=== PATIENT | female | born 1935 | race Caucasian/White ===

== ENCOUNTER 2018-11-10 11:00 | Inpatient (IN) | payer OTHER, MEDICAID ==
[~2018-11-10] VITALS: Ht 152.4 cm; Wt 63.0 kg
[~2018-11-10 11:00] MED LIST: ASCO-339 PO; CYAN100T PO; DASA50TA PO; DICY20TA55 PO; FERR-57 PO; GLIP-204 PO; LEVO25TA7 PO; LYR50 PO; MIRT15TA7 PO; NAPR250T PO; OMEP20CA10 PO; SLOW-MAG64 M1 PO; TRAZ-218 PO; XALEYE OP
[2018-11-10 11:02] VITALS: BP_SYST 129
--- NOTE | 2018-11-10 11:02 | NUR ---
Patient to ER bed 5 to gown for evaluation. Side rails up. Report given to VIRGINIA Hall.
--- NOTE | 2018-11-10 11:07 | NUR ---
ER at bedside examining patient.
--- NOTE | 2018-11-10 11:07 | NUR ---
Patient bib BLS after being dc from [facility] s/p fall five days ago. According BLS she ahs not been able to move since being dc'd from [facility] arrives with multiple c/o.
[2018-11-10] MEDS ORDERED: NACL 0.9% 1,000 ML IV ONE (11:18)
[2018-11-10] MEDS ORDERED: OMEP20CA10 PO (11:24)
[2018-11-10] MEDS ORDERED: ACET-2165 PO (11:24)
[2018-11-10] MEDS ORDERED: TRAM100T34 PO (11:24)
[2018-11-10] MEDS ORDERED: [UNRECOGNIZED DRUG - OTHER] (11:24)
[2018-11-10] MEDS ORDERED: LEVO175T2 PO (11:24)
[2018-11-10 12:18] LABS: BASOPHILS % (AUTO) 0.2 % (0.0-2.0); EOSINOPHILS % (AUTO) 0.9 % (0.0-4.0); HEMATOCRIT 38.3 % (36-48); HEMOGLOBIN 12.7 g/dL (12.0-16.0); LYMPHOCYTES # (AUTO) 0.4 K/uL (1.0-5.5); LYMPHOCYTES % (AUTO) 8.4 % (20.5-51.5); MEAN CORPUSCULAR HEMOGLOBIN 27 pg (27-31); MEAN CORPUSCULAR HGB CONC 33 % (32-36); MEAN CORPUSCULAR VOLUME 81 fL (79.0-98.0); MONOCYTES # (AUTO) 0.3 K/uL (0.0-1.0); MONOCYTES % (AUTO) 6.1 % (1.7-9.3); NEUTROPHILS # (AUTO) 4.5 K/uL (1.8-7.7); NEUTROPHILS % (AUTO) 84.4 % (40.0-70.0); PLATELET COUNT (AUTO) 245 K/uL (130-430); RED BLOOD CELL COUNT(AUTO) 4.75 MIL/uL (4.2-6.2); WHITE BLOOD COUNT (AUTO) 5.3 K/uL (4.8-10.8)
--- NOTE | 2018-11-10 12:40 | NUR ---
Pt is off the unit going to CT accompanied by staff
[2018-11-10 12:42] LABS: PROTHROMBIN TIME 10.3 SECS (9.5-12.5)
[2018-11-10 12:43] LABS: ANION GAP 6 (5-15); CALCIUM 9.3 mg/dL (8.4-11.0); CHLORIDE 95 mmol/L (98-107); CREATININE 0.59 mg/dL (0.55-1.30); GLUCOSE 109 mg/dL (70-99); POTASSIUM 4.2 mmol/L (3.5-5.1); SODIUM SERUM 127 mmol/L (136-145); UREA NITROGEN, BLOOD 12 mg/dL (8-21)
[2018-11-10] MEDS ORDERED: LORazepam 2 MG/ML VIAL (FOR ER USE) IVP ONE (12:45)
[2018-11-10 12:51] LABS: ALBUMIN 2.4 g/dL (3.4-4.8); AMYLASE 20 U/L (0-100); ASPARTATE AMINOTRANSFERASE 9 U/L (10-37); CHOLESTEROL 174 mg/dL (<200); HDL CHOLESTEROL 42 mg/dL (>55); LDL CHOLESTEROL 108 mg/dL (<100); LIPASE 59 U/L (73-393); TOTAL BILIRUBIN 0.7 mg/dL (0.0-1.0); TRIGLYCERIDES 125 mg/dL (30-150)
[2018-11-10 12:55] LABS: ALCOHOL, BLOOD < 3 mg/dL (<10)
--- NOTE | 2018-11-10 12:59 | NUR ---
pt returned from Ct. CT is incomplete, pt was unable to stay still during the exam.
[2018-11-10] MEDS ORDERED: DIPHENHYDRAMINE INJ 50 MG/ML VIAL IVP ONE (13:00)
[2018-11-10 13:09] LABS: ALANINE AMINOTRANSFERASE 5 U/L (12-78)
--- NOTE | 2018-11-10 13:38 | NUR ---
Pt is off the unit going to CT again.
--- NOTE | 2018-11-10 15:07 | NUR ---
Orders received from Dr. Piedra, entered by RN. Called for room assignment.
--- NOTE | 2018-11-10 15:08 | NUR ---
Patient will be admitted to care of Dr. Piedra. Admitted to Telemetry unit. Will go to room 104B. Belongings list completed. Summary report printed. Report will be given at bedside.
--- NOTE | 2018-11-10 15:48 | NUR ---
ADMISSION NOTE Received patient from ER via elissa, received report from WU COLEMAN. Patient admitted with diagnosis of HYPONATREMIA. Patient oriented to hospital routine, call light, toileting and safety-patient verbalized understanding.
[2018-11-10 16:18] VITALS: BP_SYST 94
--- NOTE | 2018-11-10 16:25 | NUR ---
Neuro consult called: for Dr. Bucio, ordered by Dr. Piedra, regarding mechanical fall and hyponatremia, spoke with Xiomara.
[2018-11-10] MEDS: NACL 0.9% 1,000 ML IV SCH (16:30)
--- NOTE | 2018-11-10 17:00 | NUR ---
Patient is drowsy but arousable answer simple question,with continuos IV fluid for hydration, safety/fall precaution initiated, will monitor.
--- NOTE | 2018-11-10 18:27 | NUR ---
Patient is more awake ate her dinner tolerates 50% with out aspiration, safety/fall precaution initiated verbalized understanding.
--- NOTE | 2018-11-10 19:15 | NUR ---
CHANGE OF SHIFT; pt. confused, restless, removed her tele cables, her gown and found on the floor. pt. able to verbally response, she knows her name. in no acute distress. on fall risk, safety precautions in place. call light at bedside.
[2018-11-10 20:15] VITALS: BP_SYST 147
--- NOTE | 2018-11-10 20:15 | NUR ---
NOTES: pt. repositioned and placed everything in place, cardia pattern on sinus tach with frequent PAC's. noted swelling on bilateral legs and discoloration due fall katelin. rt. legs and skin scabs. left ankle/foot slightly deformed. IVF infusing via left hand, securely wrapped with kerlix roll to prevent from pulling out. pt. incontinent. jes care done.
[2018-11-10] MEDS ORDERED: traMADol HCL HCL 50 MG TABLET (ULTRAM) PO PRN (22:00)
--- NOTE | 2018-11-10 22:00 | NUR ---
NOTES: pt. removed gown and tele monitor again. pt. talking to herself. reoriented. repositioned. IVF patent. closely monitored.
--- NOTE | 2018-11-10 22:15 | NUR ---
NOTES: Dr. Piedra came and checked pt. pretty calm right now but informed MD that she gets restless on and off . pt. is disoriented but verbally responsive. safety precautions in place due to frequent falls.
--- NOTE | 2018-11-11 | NUR ---
NOTES: pt. remains calm and sleeping at this time.
--- NOTE | 2018-11-11 02:00 | NUR ---
NOTES: repositioned. cardiac pattern unchanged, remains sinus tach with frequent PAC's.
--- NOTE | 2018-11-11 02:52 | NUR ---
CONSULTATION PAGED/CALLED Reason for Consultation: AF Person Who was Notified: RAMON Consulting Physician: MICHAEL ALMANZA IS NIGHT PATROL INSPECTOR V Belt Builder Specialty: Ordering Physician: WAQAS
--- NOTE | 2018-11-11 04:30 | NUR ---
NOTES: continue to monitor. safet measures in place. kept warm with blanket. pt. room close to nurses station.
--- NOTE | 2018-11-11 06:15 | NUR ---
NOTES: pt. awakened, was upset but needs to change since gets incontinent of urine. complete jes care done, Z david applied on both groin and under her breast. IV patent. repositioned.
--- NOTE | 2018-11-11 06:43 | NUR ---
CLOSING NOTES; pt. sleeping, in no acute distress. kept warm and comfortable. IV site intact. for further care and assistance. fall risk precautions. call light at bedside. pt. room close to nurses station.
[2018-11-11] MEDS: PANTOPRAZOLE SODIUM 40 MG TAB PO SCH (06:56)
[2018-11-11 08:00] VITALS: BP_SYST 125
[2018-11-11] MEDS ORDERED: DASATINIB 50 MG PO SCH (09:00)
[2018-11-11] MEDS ORDERED: PREGABALIN 25 MG CAPSULE (LYRICA) PO SCH (09:00)
[2018-11-11 12:48] VITALS: BP_SYST 96
[2018-11-11] MEDS ORDERED: HALOPERIDOL LACTATE 5 MG/ML VIAL IM ONE (15:15)
--- NOTE | 2018-11-11 16:10 | NUR ---
DC PLANNING Went to pt's bedside x2, in am & afternoon to do dc planning eval, both times pt sleeping, would not wake up on calling pt's name. CM/Geodetic Surveyor Technologist to f/u when pt more awake.
--- NOTE | 2018-11-11 16:21 | NUR ---
CONSULTATION PAGED/CALLED Reason for Consultation: [] PSYCHOSIS Person Who was Notified: [] SOMMER Consulting Physician: [] DR Nadine SIMMONS Naval Science Teacher Specialty: [] PSYCH Ordering Physician: [] DR Arianne ALAN
[2018-11-11 16:47] VITALS: BP_SYST 144
[2018-11-11] MEDS: QUEtiapine FUMARATE 25 MG TABLET PO SCH (17:59)
[2018-11-11 19:50] VITALS: BP_SYST 115
--- NOTE | 2018-11-11 20:00 | NUR ---
INITIAL NOTE AT INITIAL ASSESSMENT, PATIENT IS RESTING IN BED, STABLE, NO SIGNS OF RESPIRATORY DISTRESS. PATIENT VERBALIZES NO PAIN AT THIS TIME. PLAN OF CARE FOR THE EVENING IS COMMUNICATED WITH THE PATIENT. BED IS LOCKED, ALARMED, AND AT THE LOWEST LEVEL. FALL AND SAFETY PRECAUTIONS WILL BE TAKEN THROUGHOUT THE SHIFT. PATIENT IS REFUSING IV PLACEMENT AT THIS TIME, WILL CONTINUE TO ENCOURAGE.
[2018-11-11] MEDS ORDERED: traZODone HCL 50 MG TABLET (DESYREL) PO SCH (21:00)
[2018-11-11] MEDS ORDERED: MIRTAZAPINE 15 MG TABLET PO SCH (21:00)
[2018-11-11] MEDS: NYSTATIN/TRIAMCIN 15 GM TOPICAL CREAM TP SCH (21:00)
--- NOTE | 2018-11-11 22:00 | NUR ---
NOTE PATIENT IS RESTING IN BED, STABLE, NO SIGNS OF RESPIRATORY DISTRESS. CALL LIGHT IS WITHIN REACH. BED IS LOCKED, ALARMED, AND AT THE LOWEST LEVEL.
[2018-11-11 23:55] VITALS: BP_SYST 117
--- NOTE | 2018-11-12 | NUR ---
NOTE PATIENT IS SLEEPING, STABLE, NO SIGNS OF RESPIRATORY DISTRESS. CALL LIGHT IS WITHIN REACH. BED IS LOCKED, ALARMED, AND AT THE LOWEST LEVEL.
--- NOTE | 2018-11-12 02:00 | NUR ---
NOTE PATIENT IS SLEEPING, STABLE, NO SIGNS OF RESPIRATORY DISTRESS. CALL LIGHT IS WITHIN REACH. BED IS LOCKED, ALARMED, AND AT THE LOWEST LEVEL.
--- NOTE | 2018-11-12 03:00 | NUR ---
NOTE PATIENT IS SLEEPING, STABLE, NO SIGNS OF RESPIRATORY DISTRESS. CALL LIGHT IS WITHIN REACH. BED IS LOCKED, ALARMED, AND AT THE LOWEST LEVEL.
[2018-11-12] MEDS: HALOPERIDOL LACTATE 5 MG/ML VIAL IM PRN (04:25)
[2018-11-12 06:44] LABS: BASOPHILS % (AUTO) 0.6 % (0.0-2.0); EOSINOPHILS # (AUTO) 0.1 K/uL (0.0-0.4); HEMATOCRIT 32.4 % (36-48); HEMOGLOBIN 10.7 g/dL (12.0-16.0); LYMPHOCYTES # (AUTO) 0.4 K/uL (1.0-5.5); LYMPHOCYTES % (AUTO) 11.4 % (20.5-51.5); MEAN CORPUSCULAR HEMOGLOBIN 27 pg (27-31); MEAN CORPUSCULAR HGB CONC 33 % (32-36); MEAN CORPUSCULAR VOLUME 81 fL (79.0-98.0); MONOCYTES # (AUTO) 0.3 K/uL (0.0-1.0); MONOCYTES % (AUTO) 8.2 % (1.7-9.3); NEUTROPHILS # (AUTO) 2.8 K/uL (1.8-7.7); NEUTROPHILS % (AUTO) 77.8 % (40.0-70.0); PLATELET COUNT (AUTO) 235 K/uL (130-430); RED BLOOD CELL COUNT(AUTO) 3.99 MIL/uL (4.2-6.2); WHITE BLOOD COUNT (AUTO) 3.6 K/uL (4.8-10.8)
[2018-11-12 07:10] LABS: ALANINE AMINOTRANSFERASE < 5 U/L (12-78); ALBUMIN 1.8 g/dL (3.4-4.8); ANION GAP 5 (5-15); ASPARTATE AMINOTRANSFERASE 14 U/L (10-37); CALCIUM 8.7 mg/dL (8.4-11.0); CHLORIDE 97 mmol/L (98-107); CREATININE 0.61 mg/dL (0.55-1.30); GLUCOSE 134 mg/dL (70-99); SODIUM SERUM 126 mmol/L (136-145); TOTAL BILIRUBIN 0.4 mg/dL (0.0-1.0); UREA NITROGEN, BLOOD 13 mg/dL (8-21)
[2018-11-12] MEDS: PANTOPRAZOLE SODIUM 40 MG TAB PO SCH (07:13)
[2018-11-12] MEDS: NACL 0.9% 1,000 ML IV SCH ×2 (07:14→07:15)
--- NOTE | 2018-11-12 07:17 | NUR ---
Nutrition Update Giovany Scale 16 noted. Pt admitted for Hyponatremia Diet: Mechanical Soft BMI: 27 kg/m2 RD to follow per nutrition care standards.
--- NOTE | 2018-11-12 07:35 | NUR ---
Opening Notes Patient received lying comfortably in her bed with respiration even and unlabored. Able to verbalize needs and concerns. Denies any pain or discomfort at this time. IV infusing well to left FA. Discussed to patient the plan of care, patient verbalized understanding. fall precaution observed. Call light within the reach. Will continue to monitor.
--- NOTE | 2018-11-12 08:57 | NUR ---
Physical Therapy order has been received and the chart reviewed. RN to clarify with MD any possible cervical spine precautions before attempting PT evaluation.
[2018-11-12] MEDS: NYSTATIN/TRIAMCIN 15 GM TOPICAL CREAM TP SCH ×2 (09:03→20:04)
--- NOTE | 2018-11-12 09:30 | NUR ---
RN ROUND patient remain to be alert, awake and verbally responsive, resting well. Good pericare rendered by WATCH ENGINE OPERATOR. Educated patient on usage of Nystatin cream to her abdominal and breast fold, verbalized understanding. Applied Nystatin cream to her redness to abdominal and breastfold, well tolerated. Attended to needs and anticipated. Call light within the reach. Fall precaution observed.
[2018-11-12] MEDS ORDERED: FUROSEMIDE 20 MG/2 ML VIAL IVP ONE (11:00)
[2018-11-12 11:25] VITALS: BP_SYST 112
--- NOTE | 2018-11-12 11:36 | NUR ---
Dr. Dorothea nielson Seen and examined by Md will follow-up for any new orders.
--- NOTE | 2018-11-12 12:25 | NUR ---
Lasix refused patient educated on usage of lasix and its potential side effects, medication scanned then patient refused for the medication to be given, explained risks and benefits but patient still refused. Notified Dr. Piedra, with no new order at this time
[2018-11-12 14:29] VITALS: BP_SYST 123
--- NOTE | 2018-11-12 14:40 | NUR ---
RN ROUND Remain to be alert, awake and verbally responsive. Able to verbalize needs and concerns. Denies any pain or discomfort at this time. IV infusing well. Call light within the reach. Fall precaution observed. Will continue to monitor.
[2018-11-12 15:41] VITALS: BP_SYST 123
--- NOTE | 2018-11-12 16:01 | NUR ---
CONSULTATION CALLED FOR [facility] CHAND FOR CONSULT OF C-SPINE FX ORDER BY CONSULT DR ALAN SPOKE WITH IVAN
[2018-11-12] MEDS: ACETAMINOPHEN 325 MG TABLET PO PRN (16:04)
--- NOTE | 2018-11-12 16:04 | NUR ---
Generalized Pain Patient complained of generalized 3/10 pain, Tylenol 650 mg given as ordered, well tolerated. Will re-assess in an hour. Remain to be alert, awake and verbally responsive. Call light within the reach. Will continue to monitor.
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
--- NOTE | 2018-11-12 17:21 | NUR ---
CONSULTATION CALLED FOR TROY TEJADA FOR CONSULT OF PARONOID ORDER BY DR ALAN SPOKE WITH EMILI FACESHEET SENT OVER
[2018-11-12] MEDS: QUEtiapine FUMARATE 25 MG TABLET PO SCH (17:47)
--- NOTE | 2018-11-12 18:22 | NUR ---
Patient noncompliant/Called the patient remains to be confused, patient refusing SCD's, refused grading machine feeder, patient called the Senior Pricing Analyst's department, showed up and spoke with patient and reminded her where she is and that he cannot drive her home, patient agreed that she will stay for now. IV line is patent and infusing well, continuing to monitor, bed in lowest position, three side rails up, bed alarm on, bed close to nursing station.
--- NOTE | 2018-11-12 18:52 | NUR ---
Closing Notes Patient currently lying comfortably in her bed. Remain to be calm at this time. Denies any pain or discomfort at this time. Call light within the reach. Will endorse to next shift.
--- NOTE | 2018-11-12 19:30 | NUR ---
PM ASSESSMENT REPORT RECEIVED FROM AM RN. PT RECEIVED IN BED WITH EYES OPEN, CONFUSED. PT REQUIRES FREQUENT REORIENTATION. VSS, NO S/S OF ACUTE DISTRESS NOTED. PT ON RA. PT REFUSING EXERCISE PLANNER, EDUCATION PROVIDED ON IMPORTANCE OF MONITORING PT STILL REFUSES. LFA 22G IN PL[address] INFUSING NS @ 50 CC/HR. PT REFUSES TO WEAR SCDS. BECOMES AGGRESSIVE WHEN ATTEMPTING TO EDUCATE ABOUT PURPOSE OF SCDs. HOB ELEVATED, BED IN LOWEST POSITION, CALL LIGHT IN REACH. WILL CONTINUE TO MONITOR PT.
[2018-11-12 20:00] VITALS: BP_SYST 114
--- NOTE | 2018-11-12 21:08 | NUR ---
DR. WATSON WALKER AT BEDSIDE TO EVALUATE PT. NO NEW ORDERS RECEIVED AT THIS TIME. WILL CONTINUE TO MONITOR PT.
--- NOTE | 2018-11-12 22:00 | NUR ---
RN ROUNDS PT REPOSITIONED IN BED. SARIKA CARE DONE AND LINENS CHANGED WITH ASSIST OF ACTIVITY AIDE. PT CONTINUES TO REFUSE TELE BOX. WILL CONTINUE TO MONITOR PT.
[2018-11-13 00:29] VITALS: BP_SYST 146
--- NOTE | 2018-11-13 01:02 | NUR ---
RN ROUNDS PT RESTING COMFORTABLY IN BED WITH EYES CLOSED. BREATHING IS EVEN AND UNLABORED ON RA. WILL CONTINUE TO MONITOR PT.
[2018-11-13] MEDS: NACL 0.9% 1,000 ML IV SCH ×2 (06:19→16:31)
[2018-11-13] MEDS: PANTOPRAZOLE SODIUM 40 MG TAB PO SCH (06:20)
--- NOTE | 2018-11-13 07:17 | NUR ---
ENDORSEMENT BEDSIDE REPORT GIVEN TO GIRMA AND ALBERTO RN USING SBAR APPROACH. PT IN STABLE CONDITION, NO S/S OF ACUTE DISTRESS NOTED. NO OTHER NEEDS NOTED PER PT.
--- NOTE | 2018-11-13 07:30 | NUR ---
Opening Notes Patient received lying comfortably in her bed with respiration even and unlabored. Alert, awake and verbally responsive. Denies any pain or discomfort at this time. IVF infusing well, IV line to left FA intact and patent. Call light within the reach. Fall precaution observed. Will continue to monitor.
[2018-11-13] MEDS: FUROSEMIDE 20 MG TABLET PO SCH (08:04)
--- NOTE | 2018-11-13 09:26 | NUR ---
PATIENT IS AWAITING NEUROLOGY CONSULT AND RECOMMENDATION FOR CERVICAL SPINE BRACE.
--- NOTE | 2018-11-13 09:35 | NUR ---
RN ROUNDS Patient currently lying comfortably in her bed. resting well. Denies any pain or discomfort. fall precaution observed. Call light within the reach. Will continue to monitor.
[2018-11-13 10:14] VITALS: BP_SYST 121
--- NOTE | 2018-11-13 11:10 | NUR ---
RN ROUND Resting well. Respiration even and unlabored. Fall precaution observed. Call light within easy reach.
--- NOTE | 2018-11-13 11:35 | NUR ---
Dc Planning: calling patient's daughters for discharge planning assessment, 1. Sima # [phone] the line is disconnected. 2. LVM x2 to dtr Vinita # [phone].
[2018-11-13 12:00] VITALS: BP_SYST 120
--- NOTE | 2018-11-13 12:31 | NUR ---
PAGED DR. RODRIGUEZ (DR. ALMANZA COLLECTION ANALYST) PER NURSE DIALED [phone] SPOKE TO SANDI
--- NOTE | 2018-11-13 12:36 | NUR ---
Tachycardia/Paged Dr. Mcdonnell Informed by panel monitor that patient's HR went up [id number] to 160 to 180, patient is currently sitting comfortably in her bed eating lunch, V/S BP - 137/77, HR- 181 , R-20 and 02 sat at 97% on RA, no changes in LOC, denies any dizziness, asymptomatic. Dr Mcdonnell was paged, Dr. Yancey is on-call. Awaiting for call back. Will continue to monitor.
[2018-11-13] MEDS: ACETAMINOPHEN 325 MG TABLET PO PRN ×2 (13:14→21:26)
--- NOTE | 2018-11-13 13:57 | NUR ---
Dr. Mcdonnell call back received a call back from Dr. Mcdonnell, notified regarding patient's condition and tachycardia with new order for coreg 3.125 mg x 1 now then BID noted and carried out.
[2018-11-13] MEDS ORDERED: CARVEDILOL 3.125 MG TABLET (COREG) PO ONE (14:00)
[2018-11-13] MEDS: NYSTATIN/TRIAMCIN 15 GM TOPICAL CREAM TP SCH ×2 (14:09→21:00)
--- NOTE | 2018-11-13 14:14 | NUR ---
Coreg given/refusing tele box Educated patient on coreg usage and its potential side effects, patient verbalized understanding, coreg given as ordered, well tolerated. Patient removed telemetry box and refused for it to be attached, offered 3x explained risks and benefits, patient still refused.
--- NOTE | 2018-11-13 14:31 | NUR ---
Dr. Piedra rounds assessed patient, informed MD that patient had runs of tachycardia and Coreg PO was administered to the patient per Dr. Mcdonnell order, informed him that the recommendation was to provide an [place] collar instead of a hard collar, and patient is refusing to wear telemetry box at this time, will follow up with any new orders.
[2018-11-13 15:24] VITALS: BP_SYST 124
--- NOTE | 2018-11-13 16:13 | NUR ---
Rn Round Resting well in her bed. Denies any pain or discomfort at this time. Able to verbalize needs and concerns. Patient still refuse to put on her telemetry box, Fall precaution observed. Will continue to monitor.
--- NOTE | 2018-11-13 17:04 | NUR ---
Discharge Planning: DCP faxed referrals to [facility] (f [phone] p [phone]), [facility] (f [phone] p [phone]), [facility] (f [phone] p [phone]) DCP to follow up.
[2018-11-13] MEDS: QUEtiapine FUMARATE 25 MG TABLET PO SCH (17:19)
--- NOTE | 2018-11-13 18:31 | NUR ---
Closing Notes Patient currently lying comfortably in her bed with respiration even and unlabored. Remain to be alert, awake and verbally responsive. Denies any pain or discomfort at this time. call light within the reach. IVF infusing well. Will endorse to next shift.
--- NOTE | 2018-11-13 19:15 | NUR ---
Opening notes Received report. Patient is resting in bed. No signs of distress noted. Breathing even and unlabored. IV patent and intact infusing fluids. Patient is refusing telemetry box. Patient yells "I don't need it! I have never needed it! I don't want it!" Educated the importance of monitoring her heart rate and rhythm. Charge nurse made aware. No other needs at this time. Call light with the patient. Safety precautions in place.
[2018-11-13 20:00] VITALS: BP_SYST 106
--- NOTE | 2018-11-13 20:00 | NUR ---
PATIENT: PATIENT REFUSING TO HAVE TELE MONITOR ON. SAME DURING THE DAY SHIFT.
--- NOTE | 2018-11-13 20:35 | NUR ---
Hygiene care Patient had BM. Hygiene care provided. Patient tolerated well. No other needs at this time. Call light with the patient. Safety precautions in place.
[2018-11-13] MEDS: CARVEDILOL 3.125 MG TABLET (COREG) PO SCH (21:26)
--- NOTE | 2018-11-13 21:30 | NUR ---
Medications given. Educated the action and side effects of medications. Patient verbalized understanding and tolerated well. No other needs. Call light with the patient. Safety precautions in place.
--- NOTE | 2018-11-13 23:50 | NUR ---
Hygiene care Patient had a large amount of soft brown stool. Hygiene care provided. Patient tolerated well. No other needs at this time. Call light with the patient. safety precautions in place.
[2018-11-14 01:31] VITALS: BP_SYST 107
--- NOTE | 2018-11-14 01:51 | NUR ---
Sleeping Patient sleeping at this time. No signs of distress noted. Breathing even and unlabored. IVF infusing well. Call light with the patient. Safety precautions in place.
--- NOTE | 2018-11-14 02:00 | NUR ---
PATIENT: MONITOR STILL OFF. STILL REFUSED EVERY TIME RN WANTS TO PUT IT ON.
[2018-11-14] MEDS: ACETAMINOPHEN 325 MG TABLET PO PRN (03:41)
--- NOTE | 2018-11-14 04:05 | NUR ---
Resting/Pain meds Patient awake in bed. No signs of distress noted. Breathing even and unlabored. Patient still refuses shelter monitor. Patient complains of pain to abdomen. PRN pain med given. No other needs. Call light with the patient. Safety precautions in place.
[2018-11-14] MEDS: PANTOPRAZOLE SODIUM 40 MG TAB PO SCH (06:05)
--- NOTE | 2018-11-14 06:16 | NUR ---
FOLLOWED UP: FOLLOWED UP CONSULT FOR DR. SLOAN I SPOKE WITH [facility] CONSULT WAS CALLED ON 11/12/18 DR. SLOAN HAS NOT CAME TO SEE THE PATIENT YET.
--- NOTE | 2018-11-14 06:50 | NUR ---
Closing notes Patient is resting in bed. No signs of distress noted. Breathing even and unlabored. IVF infusing well. All needs met throughout the shift. Call light with the patient. Safety precautions in place. Will endorse care to day shift RN.
[2018-11-14 07:39] LABS: BASOPHILS % (AUTO) 0.5 % (0.0-2.0); EOSINOPHILS # (AUTO) 0.1 K/uL (0.0-0.4); EOSINOPHILS % (AUTO) 3.9 % (0.0-4.0); LYMPHOCYTES # (AUTO) 0.4 K/uL (1.0-5.5); LYMPHOCYTES % (AUTO) 16.6 % (20.5-51.5); MEAN CORPUSCULAR HEMOGLOBIN 27 pg (27-31); MEAN CORPUSCULAR HGB CONC 33 % (32-36); MEAN CORPUSCULAR VOLUME 80 fL (79.0-98.0); MONOCYTES # (AUTO) 0.2 K/uL (0.0-1.0); MONOCYTES % (AUTO) 9.2 % (1.7-9.3); NEUTROPHILS # (AUTO) 1.7 K/uL (1.8-7.7); NEUTROPHILS % (AUTO) 69.8 % (40.0-70.0); PLATELET COUNT (AUTO) 285 K/uL (130-430); RED BLOOD CELL COUNT(AUTO) 3.74 MIL/uL (4.2-6.2); WHITE BLOOD COUNT (AUTO) 2.4 K/uL (4.8-10.8)
[2018-11-14 07:57] LABS: ANION GAP 9 (5-15); CALCIUM 8.5 mg/dL (8.4-11.0); CHLORIDE 107 mmol/L (98-107); CREATININE 0.54 mg/dL (0.55-1.30); GLUCOSE 115 mg/dL (70-99); POTASSIUM 3.6 mmol/L (3.5-5.1); SODIUM SERUM 140 mmol/L (136-145); UREA NITROGEN, BLOOD 7 mg/dL (8-21)
[2018-11-14 08:00] VITALS: BP_SYST 107
--- NOTE | 2018-11-14 08:00 | NUR ---
Initial Note: Pt awake and confused. Is incontinent of stool and urine, cleaned pt. Refused tele monitor and SCD's at this time. Will attempt to put aspen collar as ordered. IVF fluids infusing well on left hand. Denies any pain, or SOB at this time. Safety precautions in place, bed alarm on, call light within reach and encourage pt to use.
[2018-11-14] MEDS: CARVEDILOL 3.125 MG TABLET (COREG) PO SCH ×2 (08:35→21:41)
[2018-11-14] MEDS: NYSTATIN/TRIAMCIN 15 GM TOPICAL CREAM TP SCH ×2 (08:35→21:41)
[2018-11-14] MEDS: FUROSEMIDE 20 MG TABLET PO SCH (08:36)
--- NOTE | 2018-11-14 08:42 | NUR ---
Notes- pt refuses aspen collar.
--- NOTE | 2018-11-14 10:00 | NUR ---
Notes-Pt was seen by PT at bedside. Pt continues to refuse to wear [place]. No acute distress noted. Denies any pain at this time.
--- NOTE | 2018-11-14 10:36 | NUR ---
Discharge Planning: DCP followed up- [facility] (f [phone] p [phone]) Accepting [facility] (f [phone] p [phone]), [facility] (f [phone] p [phone]) accepting
--- NOTE | 2018-11-14 11:30 | NUR ---
Patient agreed to trial fitting of the [place] collar. She demanded that it be removed because it is uncomfortable. Brace/collar fits well and maintains the cervical spine in good alingment. Discussed the benefits of the brace, however, the patient is adamant that she does not want to wear it. She verbalizes that she understands its purpose. Informed patient's nurse. Plan: Physical Therapy evaluation is held until Neuro consult/MD clearance to attempt out of bed activities without the cervical brace.
--- NOTE | 2018-11-14 11:38 | NUR ---
DC Planning: per SWATI Sutton "unable to contact pt's dtrs" seen CONCRETE FOREMAN 's note in detail.
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
--- NOTE | 2018-11-14 12:00 | NUR ---
NOTES-PT AWAKE, EATING IN BED. NO ACUTE DISTRESS NOTED. DENIES ANY PAIN OR DISCOMFORT. PT STILL REFUSES TO WEAR ASPEN COLLAR. WILL CONTINUE TO MONITOR.
[2018-11-14 12:24] VITALS: BP_SYST 117
[2018-11-14] MEDS: NACL 0.9% 1,000 ML IV SCH (13:19)
--- NOTE | 2018-11-14 14:00 | NUR ---
NOTES-PT AWAKE, RESTING IN BED. PT WAS INCONTINENT OF URINE, CHANGED PT BEDDING AND REPOSITIONED. NO ACUTE DISTRESS NOTED. PT DENIES ANY PAIN OR DISCOMFORT.
--- NOTE | 2018-11-14 14:39 | NUR ---
CONSULTATION PAGED/CALLED Reason for Consultation: C-SPINE FX Person Who was Notified: SPOKE WITH IVAN FROM OFFICE Consulting Physician: Director Of Student Financial Services Specialty: SURGEON Ordering Physician:
--- NOTE | 2018-11-14 16:00 | NUR ---
NOTES-PT AWAKE, RESTING IN BED. NO ACUTE DISTRESS NOTED. DENIES ANY PAIN OR DISCOMFORT AT THIS TIME. GAVE TEA TO DRINK AND REPOSITIONED PT. WILL CONTINUE TO MONITOR.
[2018-11-14 16:24] VITALS: BP_SYST 113
[2018-11-14] MEDS: QUEtiapine FUMARATE 25 MG TABLET PO SCH (18:06)
--- NOTE | 2018-11-14 18:29 | NUR ---
CLOSING NOTE-PT AWAKE, EATING DINNER. NO ACUTE DISTRESS NOTED. DENIES ANY PAIN OR DISCOMFORT AT THIS TIME. REPOSITIONED PT. BED IN LOWEST POSITION, CALL LIGHT WITHIN REACH AND ENCOURAGED TO USE FOR ASSISTANCE. WILL CONTINUE TO MONITOR UNTIL PT CARE IS ENDORSED TO WIRE PULLER RN.
--- NOTE | 2018-11-14 20:00 | NUR ---
Initial note: Received report from dayshift RN. Patient is awake watching TV. Alert and oriented to name only. No acute distress. Tolerating room air. IV site infusing well to left forearm, no infiltration noted. Bed is locked in lowest position, side rails raised x3, bed alarm on, room is close to nurses' station. Call light with patient. Will continue with plan of care.
[2018-11-14 20:55] VITALS: BP_SYST 109
--- NOTE | 2018-11-14 23:18 | NUR ---
IV re-insertion: 24 gauge IV reinserted to patient's right forearm by VIRGINIA Figueroa. Site is secured with gauze wrap and paper tape. IV fluids resumed as ordered. Patient was instructed not to touch IV site, but became verbally aggressive towards VIRGINIA Figueroa. Call light with patient. Safety and fall precautions in place. Will continue to monitor.
--- NOTE | 2018-11-15 01:04 | NUR ---
Rounds: Patient is resting comfortably in bed, no acute distress noted. Respiration are even, unlabored on room air. IV fluids infusing well to right forearm, IV site is patent and intact, no infiltration noted. Call light with patient. Safety, fall precautions in place. Will continue monitoring.
[2018-11-15] MEDS: HALOPERIDOL LACTATE 5 MG/ML VIAL IM PRN (03:09)
--- NOTE | 2018-11-15 03:09 | NUR ---
AGITATED: PT IS VERY AGITATED ,GETTING OUT OF BED , SAYING "I WANTS TO GO OUT AND GET MY STUFF FROM MY APARTMENT", PT IS PULLING HER IV , TRIED TO EDUCATE THE PT , PT DOESNT WANT TO LISTEN , PRIMARY RN ON BREAK ;GLAZE WIPER , A.N ,C.N AND SECURITY AT BEDSIDE ; PER ORDER HALDOL 2 MG IM GIVEN TO LEFT DORSOGLUTEAL SITE . PT TOLERATED IT WELL , C.N AND C.N ARE STILL AT BEDSIDE . WILL CONTINUE TO MONITOR PT . PT IS INCONTINENT WITH URINE , PT CLEANED , LINEN AND GOWN CHANGED ; PT TURNED AND REPOSITIONED .
--- NOTE | 2018-11-15 03:32 | NUR ---
Agitation: Per VIRGINIA Figueroa, Haldol 2 MG was administered intramuscularly as patient had become increasingly agitated. A diaper was applied to patient per her request. She was educated regarding hospital policy, but still wanted a diaper. Patient stated that she uses [facility] when she is at home. Patient is awake in bed at this time, appears calm, not in any acute distress. Call light is with patient. Safety and fall precautions in place. Will continue monitoring.
[2018-11-15 04:16] VITALS: BP_SYST 114
[2018-11-15] MEDS: PANTOPRAZOLE SODIUM 40 MG TAB PO SCH (06:24)
--- NOTE | 2018-11-15 06:33 | NUR ---
Closing note: Patient is sitting up in bed, not in acute distress. Tolerating room air. IV site to right forearm is patent, benign, receiving IV fluids well. All needs met. Safety and fall precautions observed. Hourly rounding performed throughout shift. Will endorse care to dayshift RN.
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
[2018-11-15 08:12] VITALS: BP_SYST 140
[2018-11-15] MEDS: FUROSEMIDE 20 MG TABLET PO SCH ×2 (08:19→08:23)
[2018-11-15] MEDS: NYSTATIN/TRIAMCIN 15 GM TOPICAL CREAM TP SCH (08:20)
[2018-11-15] MEDS: CARVEDILOL 3.125 MG TABLET (COREG) PO SCH (08:20)
--- NOTE | 2018-11-15 10:02 | NUR ---
NOTES patient cleaned for episode of stool and urine incontinence, patient tolerated well and is able to turn well, patient denies any other acute distress or pain, breathing is even and unlabored on room air, IVF infusing as ordered, will continue to monitor, safety precautions in place, call light within reach.
--- NOTE | 2018-11-15 10:20 | NUR ---
Need Family Contact Patient referred to Compliance Review Officer for help in finding a family contact. ROPE MAKER reviewed the chart. Voicemails have been left for daughter, Bandar Talamantes, . The number for daughter, Sima Shaffer, , does not connect. The Admission Assessment noted a number for Sima, . That number does not work. Noted PCP, Rashid Patel [phone]. Spoke with a staff member there and was provided with the same number for [place]a, but a new number for Sima, . Phoned that number and left a voicemail requesting an urgent call back with no patient identifying information. The message stated that it was the number for someone called Mary. Noted patient was recently discharged from [facility], . Phoned the Social Work department and left a voicemail message requesting a call back with phone numbers for patient's family. Addendum: 11/15/18 at 1040 by Ni Mata [facility] Patient resides at [facility] [phone]. Phoned Helen Thomas, the corporate quality assurance manager there. They have no good phone numbers for the patient's daughters. They have tried to reach them many times. Mansi, at [facility] [phone], arranged for transport home after the recent discharge. Addendum: 11/15/18 at 1109 by Ni Mata ROPE MAKER Laurie , patient's daughter called. She has been out of town. Spoke with Mariola KERN about SNF. Immediately after the call Airam COLEMAN called stating patient has been placed on a 5150 hold. Phoned Laurie back and informed her of possible pending psych placement. Will work on placement.
--- NOTE | 2018-11-15 11:19 | NUR ---
REMINDED THE NEUROSURGEON CONSULT TO DR SLOAN, RE: C SPINE AND NECK FRACTURE. SPOKE TO USHA.
--- NOTE | 2018-11-15 12:00 | NUR ---
Psychiatric Placement STATISTICAL ASSISTANT spoke with Dr Neville who recommended trying [facility] for possible placement. Phoned Sai at [place], p [phone] f [phone], who stated they may have beds available this afternoon and requested patient's information be faxed, which was done. Waiting on neurosurgery consult before patient can be discharged. Addendum: 11/15/18 at 1455 by Ni Mata LCSW Was made aware that patient has been cleared by neurosurgery to be discharged no neck brace. Phoned Sai at [place] about 14:00. He will check patient's insurance status and with admitting. Awaiting call back.
--- NOTE | 2018-11-15 12:15 | NUR ---
NOTES patient is resting in bed awake at this time, patient is reading through notebook, patient states she needs to go home, educated patient on plan of care, will continue to monitor, safety precautions in place, call light within reach.
[2018-11-15 12:52] VITALS: BP_SYST 121
--- NOTE | 2018-11-15 14:42 | NUR ---
PATIENT ROOM CHANGED patient moved to room 120C after voicing suicidal ideations with a plan, educated patient on plan of care, no acute distress or pain noted, breathing is even and unlabored on room air, will continue to monitor, sitter at bedside.
--- NOTE | 2018-11-15 14:55 | NUR ---
Dietitian Recommendations * Recommend mechanical soft diet, Ensure Enlive BID (ONS provides 700 kcal/day, 40 gm protein/day) GRACE ROYAL Please refer to Nutrition Assessment for details. Addendum: 11/15/18 at [address] Amended: Links added. Addendum: 11/15/18 at [address] CORRECTION: Dietitian Recommendations * Recommend mechanical soft, finely chopped diet, Ensure Enlive BID (ONS provides 700 kcal/day, 40 gm protein/day) GRACE ROYAL
[2018-11-15 15:10] VITALS: BP_SYST 121
[2018-11-15] MEDS: NACL 0.9% 1,000 ML IV SCH (15:15)
--- NOTE | 2018-11-15 15:23 | NUR ---
Transfer to [facility] p [phone] f [phone], called. They will accept patient to room 58A. Call report prior to transfer to above number. Notified daughter, Charity [phone], of transfer. Staff from [facility] stated they will still be willing to accept patient after psych placement, even if patient requires half-way placement. [facility], , will transport patient at 17:00, or sooner if available. Notified Yokasta COLEMAN of above.
--- NOTE | 2018-11-15 16:05 | NUR ---
NOTES patient is resting in bed awake at this time, patient denies any acute distress or pain, breathing is even and unlabored on room air, patient changed for transfer, will continue to monitor, safety precautions in place, sitter at bedside.
--- NOTE | 2018-11-15 17:34 | NUR ---
PT TRANSFERRED Report given to MAGDIEL at [facility]. Transfer packet with Transfer Orders and Medication Reconciliation form given to EMT with report. Exitcare provided. [facility] ID band removed, replaced with ID band with pt's name and . IV catheter removed, intact and dressing applied, no active bleeding. All belongings sent with patient. Patient left floor via gurney escorted by EMT in no distress.
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
== END 2018-11-15 17:42 | DRG 551 ==
LOC: SED 11:00 → STU 15:02 → SMU 11-14 17:06
PROVIDERS: ADMIT Internal Medicine; ATTEND Internal Medicine
DX: M47.896 Other spondylosis, lumbar region (principal); E43 Unspecified severe protein-calorie malnutrition; E87.1 Hypo-osmolality and hyponatremia; G93.40 Encephalopathy, unspecified; I47.1 Supraventricular tachycardia; F03.90 Unspecified dementia, unspecified severity, without behavioral disturbance, psychotic disturbance, mood disturbance, and anxiety; E03.9 Hypothyroidism, unspecified; E11.9 Type 2 diabetes mellitus without complications; R62.7 Adult failure to thrive; I48.2 Chronic atrial fibrillation; G89.4 Chronic pain syndrome; R29.6 Repeated falls; Z85.6 Personal history of leukemia; Z79.899 Other long term (current) drug therapy; Z91.041 Radiographic dye allergy status; Z90.89 Acquired absence of other organs; Z82.49 Family history of ischemic heart disease and other diseases of the circulatory system; Z68.27 Body mass index [BMI] 27.0-27.9, adult
CPT/HCPCS: 36415; 70450-TC; 71045; 72100-TC; 72125-TC; 72131; 80048; 80053; 80061; 82150-TC; 82550-TC; 83605; 83690-TC; 83880; 84484; 85025; 85610-TC; 85730-TC; 87040-TC; 87081; 93005; 96361; 96374; 96375; 99285; G0378; G0481; G0482; J1200; J1630; J1940; J2060; J7030